=== PATIENT | male | born 1980 | race Two or more races ===

== ENCOUNTER 2021-11-17 10:12 | Emergency (ER) | payer OTHER ==
[2021-11-17 10:22] VITALS: BMI 28.1
[2021-11-17 12:40] LABS: BASO % 0.8 % (0-2.0); HEMATOCRIT 42.7 % (35.4-49); HEMOGLOBIN 14.1 GM/dL (11.7-16.9); LYMPH % 35.3 % (8-40); MCH 28.9 pg (25.7-33.7); MEAN CELL VOLUME 87.5 fl (80-96); MEAN PLT VOLUME 7.5 fl (7.5-11.1); MONO % 6.2 % (3.8-10.2); NEUT % 56.7 % (42.8-82.8); PLATELET COUNT 334 10^3/uL (134-434); RBC 4.88 M/mm3 (4.00-5.60); WHITE BLOOD COUNT 4.7 K/mm3 (4.0-10.0)
[2021-11-17 13:09] LABS: CALCIUM 9.6 mg/dL (8.5-10.1)
[2021-11-17 13:10] LABS: BLOOD UREA NITROGEN 11.7 mg/dL (7-18); MAGNESIUM 2.6 mg/dL (1.8-2.4)
[2021-11-17 13:13] LABS: CREATININE 1.2 mg/dL (0.55-1.3)
[2021-11-17 13:14] LABS: BILIRUBIN,TOTAL 0.4 mg/dL (0.2-1); TOT PROT 7.9 g/dl (6.4-8.2)
[2021-11-17 16:01] VITALS: BP 137/103; PULSE 77; TEMP 98.3
[2021-11-18 12:08] LABS: SARS-CoV-2 NAA Not Detected (Not Detected)
== END 2021-11-17 17:19 | disposition home or self-care (01) ==
LOC: JER 10:12
DX: R07.9 Chest pain, unspecified (principal)
CPT/HCPCS: 71046-TC-FY; 80053; 82550; 83735; 84443; 84484; 85025; 93005; 93010; 99285-25; C9803; U0003; U0005